=== PATIENT | female | born 1990 | race Caucasian/White ===

== ENCOUNTER 2017-07-24 19:57 | Emergency (ER) | payer OTHER ==
[2017-07-24] MEDS ORDERED: LIDOCAINE 1% INJ-PF (10 MG/ML) 30 ML SDV INJ ONE (21:08)
--- NOTE | 2017-07-24 21:10 | ER Document Report ---
HPI - HPI Patient complains to provider of: Left thumb laceration Pain Level: 3 Context: Patient is a 27-year-old female that comes emergency department for chief complaint of laceration to her left thumb, she states she was carving a pop can and slipped and cut herself with a knife. 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 She denies any other injuries. - REPRODUCTIVE LMP: 19wks . Past Medical History - General Information source: Patient - Social History Smoking Status: Never Smoker Drug Abuse: None Lives with: Family Family History: Reviewed & Not Pertinent - Medical History Medical History: Negative Renal/ Medical History: Denies: Hx Peritoneal Dialysis Surgical Hx: Negative Vertical Provider Document - CONSTITUTIONAL General Appearance: WD/WN, No Apparent Distress - HEENT HEENT: Atraumatic, Normocephalic - RESPIRATORY Respiratory: Breath Sounds Normal, No Respiratory Distress - CARDIOVASCULAR Cardiovascular: Regular Rate, Regular Rhythm - GI/ABDOMEN Gastrointestinal: Abdomen Soft, Abdomen Non-Tender - MUSCULOSKELETAL/EXTREMETIES Musculoskeletal/Extremeties: Tender - Laceration to the left thumb over the lateral aspect, just past the PIP, there is some anesthesia along the side of the thumb, normal capillary refill, normal sensation otherwise, no other abnormality noted. Normal range of motion. Course - Re-evaluation Re-evalutation: Questionable nerve injury along the site of the thumb distal to the wound, no evidence of tendon injury, wound explored carefully, normal range of motion. Discussed with patient, patient will follow up with hand surgeon because of numbness, placed in splint here, discussed follow-up and return precautions, patient states understanding and agreement. - Vital Signs Vital signs: Temp Pulse Resp BP Pulse Ox 98.2 F 87 128/99 H 07/24/17 20:02 07/24/17 20:02 07/24/17 20:02 Procedures - Immobilization Left thumb Pre-Proc Neuro Vasc Exam: Normal Immobilizer type: Finger splint (Static) Performed by: RN - Laceration/Wound Repair Left thumb Wound length (cm): 2 Wound's Depth, Shape: Irregular Laceration pre-procedure: Sterile PPE donned, Sterile drapes applied, Shur- Clens applied Anesthetic type: 1% Lidocaine Volume Anesthetic (mLs): 3 Wound explored: Clean, No foreign body removed Irrigated w/ Saline (mLs): 40 Wound Repaired With: Sutures Suture Size/Type: 5:0, Nylon Number of Sutures: 4 Layer Closure?: No Post-procedure wound care: Sterile dressing applied Complications: No Discharge - Discharge Clinical Impression: Laceration of left thumb Qualifiers: Encounter type: initial encounter Damage to nail status: with damage Foreign body presence: without foreign body Qualified Code(s): S61.112A - Laceration without foreign body of left thumb with damage to nail, initial encounter Condition: Stable Disposition: HOME, SELF-CARE Additional Instructions: By examination you appear to have injured the nerves in the thumb although the tendons are intact and there is no other evidence of injury. My recommendation is to have a reassessment performed by orthopedics for additional management. Call the referral listed tomorrow to set up your appointment. Keep wound clean , clean with soap and water, dab dry, you can apply topical antibiotic. Wear the splint until reevaluation by orthopedics. Return to the emergency department for any concerning symptoms. Referrals: JESÚS RUGGIERO, [ACTIVE STAFF] - Follow up tomorrow
[2017-07-24 22:18] VITALS: BP 111/53
== END 2017-07-24 22:20 | disposition home or self-care (01) ==
LOC: ER 19:57
PROC: 0HQGXZZ Repair Left Hand Skin, External Approach (ICD-10-PCS; principal; 2017-07-24)
DX: S61.012A Laceration without foreign body of left thumb without damage to nail, initial encounter (principal); W26.0XXA Contact with knife, initial encounter; Z3A.19 19 weeks gestation of pregnancy
CPT/HCPCS: 99283; 12001; J3490

== ENCOUNTER 2017-07-26 14:06 | Day surgery (SDC) | payer OTHER ==
[~2017-07-26 14:06] MED LIST: CEFAZOLIN 1 GM/D5W RTU 1 GM/50 ML RTUPB IV PRN
[2017-07-26] MEDS ORDERED: BUPIVACAINE HCL 0.5 % INJ/PF 30 ML SDV ONE (15:18)
[2017-07-26] MEDS ORDERED: PROPOFOL INJ 200 MG/20 ML VIAL IV ONE (15:47)
[2017-07-26] MEDS ORDERED: LIDOCAINE 1% INJ-PF (10 MG/ML) 30 ML SDV ONE (15:54)
--- NOTE | 2017-07-26 17:31 | Operative Report ---
Operative Report DATE OF SURGERY: 07/26/17 PREOPERATIVE DIAGNOSIS: Left thumb radial digital nerve laceration POSTOPERATIVE DIAGNOSIS: Same OPERATION: Left thumb radial digital nerve repair SURGEON: JESÚS RUGGIERO ANESTHESIA: LMAC COMPLICATIONS: None ESTIMATED BLOOD LOSS: Minimal PROCEDURE: Indication for above procedure: 27-year-old female who is 19 months who was carving a pumpkin and apparently sustained a laceration to her left thumb. She was seen in the emergency room where the wound was reapproximated and patient was sent to my office for further evaluation and possible treatment. On examination patient has findings of radial digital nerve laceration. At that point we discussed treatment options including risk along with prognosis after digital nerve injury such as continued cold insensitivity and hyperesthesias. After discussing the risks and benefits the joint decision was made to proceed with operative intervention. Risks and benefits were explained to risks including neurovascular risk, risk, infection, postoperative pain, postoperative stiffness, cold insensitivity, permanent numbness and any unforeseen complication. Procedure In Detail: Patient was seen and evaluated in the preoperative holding area. The RIGHT upper extremity was initialized and marked. Patient received 2g of Ancef IV for bacterial prophylaxis. Patient was taken back to the operative room where transferred to the operative table. Once they were adequately anesthetized a nonsterile tourniquet was placed on the upper extremity. A surgical team debriefing was performed ensuring all instrumentation was available, the surgical procedure was discussed with possible concerns reviewed. A digital block of the left thumb was performed utilizing 10 mL 50:50 mixture of 0.5% Marcaine and 1% lidocaine without epinephrine. The upper extremity was prepped with chlorhexidine and alcohol and draped in a sterile fashion. A timeout was done identifying correct patient, procedure and extremity everyone in attendance agree with this and verbalized no concerns. Given the fact patient was given minimal conscious sedation to allow for digital block we avoid irritation by not inflating the tourniquet unless required. Patient's previous skin incision was utilized and extended proximally and distally with primary extensions. The radial digital nerve was isolated and found to be cut by 95% with 1 fascicle remaining along its ulnar border. Patient had good capillary refill thus in the adjacent bleeding was coagulated bipolar cautery including the adjacent radial digital artery. The cut nerve fascicles of the radial digital nerve were then debrided to normal -appearing fascicles. A tensionless repair was then performed utilizing interrupted 9-0 nylon suture under loupe magnification. This was then reinforced with fibrin glue. A 2 mm nerve wrap was placed to protect the nerve repair. Patient had extension of the MP joint to 0 without evidence of tension at the nerve repair site. The wound was then copiously irrigated with normal saline. No significant bleeding was appreciated. Skin incision was closed with interrupted 4-0 nylon suture. Was dressed with Xeroform 4 x 4's and patient was placed in a thumb spica splint with 20 of palmar abduction MP joint flexion of 20 and wrist in 10 of extension. Sponge counts, instrument counts, needle counts counts were correct. Patient was then awoken from anesthesia. Transferred from the operating room table to the operating room stretcher. There was no intraoperative complications patient tolerated procedure well stable to PACU. Postoperative plan: Patient follow-up the office in 10-14 days. We will set the patient up for occupational therapy on follow-up to be fitted for a thermoplastic splint maintaining the above position. Patient will avoid hyperextension of the MP joint until 6 weeks postoperatively. Immediately postoperatively patient will be checked for heart tones to ensure no evidence of compromise.
--- NOTE | 2017-07-26 17:33 | PDOC DISCHARGE SUMMARY ---
Discharge Summary (SDC) - Discharge Final Diagnosis: Left thumb radial digital nerve laceration Date of Surgery: 07/26/17 Discharge Date: 07/26/17 Condition: Good Treatment or Instructions: Schedule Follow Up w/ Dr. Jose Irizarry @ [facility] to be seen in 10-14 days or as scheduled [place]: [place]: [place]: Ice and elevate Keep splint clean/dry/intact. If your fingers become numb please unwrap the Andrez wrap but leave the splint in place, if the sensation does not return within 30 minutes please return to the emergency department to non injured digits. Stool softener of choice when on pain medication if needed Discharge Diet: As Tolerated Respiratory Treatments at Home: Deep Breathing/Coughing Discharge Activity: No Lifting Over 10 Pounds, No Lifting/Push/Pulling Report the Following to Your Physician Immediately: Fever over 101 Degrees, Unusual Bleeding, Redness, Swelling, Warmth, Increased Soreness
[2017-07-26 19:00] VITALS: BP 116/67
== END 2017-07-26 18:30 | disposition home or self-care (01) ==
LOC: OROUT 14:06
PROVIDERS: ATTEND Orthopaedic Surgery
PROC: 01U60JZ Supplement Radial Nerve with Synthetic Substitute, Open Approach (ICD-10-PCS; principal; 2017-07-26 16:00)
DX: S64.32XA Injury of digital nerve of left thumb, initial encounter (principal); S61.012A Laceration without foreign body of left thumb without damage to nail, initial encounter; W26.0XXA Contact with knife, initial encounter; W45.8XXA Other foreign body or object entering through skin, initial encounter
CPT/HCPCS: 64708; 64999; J0690; J3490; J2704; 1810